=== PATIENT | female | born 1990 | race Caucasian/White ===

== ENCOUNTER 2016-11-25 13:29 | Emergency (ER) | payer OTHER ==
[2016-11-25 13:49] VITALS: BP 112/82
--- NOTE | 2016-11-25 14:53 | UC ---
Abdominal Pain Female HPI - HPI Summary HPI Summary: Noticed R-sided low pelvic discomfort, "swelling" 2 nights ago. Also feeling bloated and a little nauseated, like with a period, but pt doesn't get periods with mirena. She does have occasional spotting but doesn't track frequency and isn't sure if it happens monthly or not. Just started with vaginal spotting today, feels it has been a long time (more than a month). Denies fever, recent new sexual partners, urinary sx, or severe pain. Had normal BM this morning and reports BMs 1-2x/day usually. - History of Current Complaint Chief Complaint: UCGeneralIllness Stated Complaint: PELVIC SWELLING/ABD PAIN/CRAMPS Time Seen by Provider: 11/25/16 14:02 Hx Obtained From: Patient Hx Last Menstrual Period: unknown ?: No Onset/Duration: Gradual Onset, Lasting Days Timing: Constant Severity Initially: Mild Severity Currently: Mild Location: Discrete At: RLQ, Suprapubic Radiates: No Character: Cramping Aggravating Factor(s): Nothing Alleviating Factor(s): Nothing Associated Signs and Symptoms: Positive: Nausea. Negative: Fever, Cough, Back Pain, Constipation, Blood in Stool, Urinary Symptoms, Vaginal Discharge, Vomiting, Diarrhea Allergies/Adverse Reactions: Allergies Allergy/AdvReac Type Severity Reaction Status Date / Time No Known Allergies Allergy Verified 11/25/16 13:40 PMH/Surg Hx/FS Hx/Imm Hx Previously Healthy: Yes - Surgical History Surgical History: Yes Surgery Procedure, Year, and Place: . Biopsy, bilat breasts - Family History Known Family History: Positive: None Negative: Cardiac Disease, Hypertension, Diabetes - Social History Lives: With Family Alcohol Use: None Substance Use Type: None Smoking Status (MU): Never Smoked Tobacco - Immunization History Most Recent Influenza Vaccination: not needed Most Recent Tetanus Shot: december 2013 Most Recent Pneumonia Vaccination: not needed Review of Systems Constitutional: Negative Skin: Negative Eyes: Negative ENT: Negative Respiratory: Negative Cardiovascular: Negative Gastrointestinal: Abdominal Pain Genitourinary: Negative Motor: Negative Neurovascular: Negative Musculoskeletal: Negative Neurological: Negative Psychological: Negative All Other Systems Reviewed And Are Negative: Yes Physical Exam Triage Information Reviewed: Yes Appearance: Well-Appearing, No Pain Distress, Well-Nourished Vital Signs: Initial Vital Signs Temp 98.4 F 11/25/16 13:41 Pulse 97 11/25/16 13:41 Resp 18 11/25/16 13:41 BP 112/82 11/25/16 13:41 Pulse Ox 100 11/25/16 13:41 Vital Signs Reviewed: Yes Eye Exam: Normal Eyes: Positive: Conjunctiva Clear ENT Exam: Normal ENT: Positive: Normal ENT inspection, Hearing grossly normal, Pharynx normal, TMs normal Dental Exam: Normal Neck exam: Normal Neck: Positive: Supple, Nontender, No Lymphadenopathy Respiratory Exam: Normal Respiratory: Positive: Chest non-tender, Lungs clear, Normal breath sounds, No respiratory distress, No accessory muscle use Cardiovascular Exam: Normal Cardiovascular: Positive: RRR, No Murmur Abdomen Description: Positive: Nontender, No Organomegaly, Soft, Other: - able to deeply palpate uncomfortable area, no mass or pelvic LAD noted. Pt comfortable the whole time.. Negative: CVA Tenderness (R), CVA Tenderness (L), Distended, Guarding Musculoskeletal Exam: Normal Neurological Exam: Normal Neurological: Positive: Alert Psychological Exam: Normal Skin Exam: Normal Abd Pain Female Course/Dx - Differential Dx/Diagnosis Provider Diagnoses: Abdominal bloating due to reproductive hormones Discharge - Discharge Plan Condition: Stable Disposition: HOME Patient Education Materials: Gas and Bloating (ED) Referrals: No Primary Care Phys,NOPCP [Primary Care Provider] - Additional Instructions: As we discussed, I do not see any concerning signs for emergencies such as ectopic or ovarian torsion. Your collection of symptoms is very consistent with hormonal changes around menstruation, and since the mirena does not always suppress hormonal cycling, I think your cramping and bloating are from your reproductive hormones. You should start feeling better in two or three days, and all pain should be manageable with ibuprofen or acetaminophen. If you develop fever, severe pain, brisk vaginal bleeding, or if you ever have a positive test with an IUD, please go to the emergency department. I am sending blood work to make sure you are not and lab work to check for gynecological infection.
== END 2016-11-25 14:46 | disposition home or self-care (01) ==
LOC: UCEAST 13:29
DX: R14.0 Abdominal distension (gaseous) (principal); Z97.5 Presence of (intrauterine) contraceptive device
CPT/HCPCS: 36415; 81003; 84702; 87491; 87591; 99211; G0463

== ENCOUNTER 2018-04-16 17:11 | Emergency (ER) | payer OTHER ==
[2018-04-16 17:51] VITALS: BP 107/72
--- NOTE | 2018-04-16 19:29 | UC ---
Complaint Female HPI - HPI Summary HPI Summary: 27 y/o female presents to the urgent care c/o a white vaginal discharge that itches a lot. Pt reports she was Tx for Micheline 3 weeks ago at [facility] w / 1 tab PO of Fluconazole. However symptoms improved for 3 days and then vaginal discharged returned. Pt states genital irritation due to itchiness. Pt denies fever, lower backpain,urinary symptoms, flank pain, Hx of STD's, abdominal pain, N/V/D. LMP: on Mirena w/ irregular menstrual cycles. - History Of Current Complaint Chief Complaint: UCGU Stated Complaint: PERSONAL Time Seen by Provider: 04/16/18 19:06 Hx Obtained From: Patient Hx Last Menstrual Period: 04/03/2018 ?: No Onset/Duration: Gradual Onset, Lasting Weeks - 3 weeks, Still Present, Worse Since - last week Timing: Constant Severity Initially: Mild Severity Currently: Moderate Pain Intensity: 5 - genital irritation Pain Scale Used: 0-10 Numeric Character: Burning Aggravating Factor(s): Urination Associated Signs And Symptoms: Positive: Vaginal Discharge, Genital Swelling. Negative: Fever, Back Pain - Risk Factors Ectopic Risk Factor: Negative - Allergies/Home Medications Allergies/Adverse Reactions: Allergies Allergy/AdvReac Type Severity Reaction Status Date / Time No Known Allergies Allergy Verified 04/16/18 17:51 PMH/Surg Hx/FS Hx/Imm Hx Previously Healthy: Yes - Pt denies PMHX - Surgical History Surgical History: Yes Surgery Procedure, Year, and Place: . Biopsy, bilat breasts - Family History Known Family History: Positive: Diabetes Negative: Cardiac Disease, Hypertension - Social History Occupation: Employed Full-time Lives: With Family Alcohol Use: Rare Substance Use Type: None Smoking Status (MU): Never Smoked Tobacco - Immunization History Most Recent Influenza Vaccination: not needed Most Recent Tetanus Shot: december 2013 Most Recent Pneumonia Vaccination: not needed Review of Systems Constitutional: Negative Skin: Rash - genital irritation Eyes: Negative ENT: Negative Respiratory: Negative Cardiovascular: Negative Gastrointestinal: Negative Genitourinary: Vaginal/Penile Itching, Vaginal/Penile Discharge Motor: Negative Neurovascular: Negative Musculoskeletal: Negative Neurological: Negative Psychological: Negative Is Patient Immunocompromised?: No All Other Systems Reviewed And Are Negative: Yes Physical Exam - Summary Physical Exam Summary: Vital signs: reviewed General: well developed, well nourished female sitting in the examining table w /o any acute distress. Head: Normocephalic, no lesions. Eyes: PERRLA, EOM's full, conjunctiva clear, fundi grossly normal. Ears: EAC's clear, TM's normal. Nose: Mucosa normal, no obstruction. Throat: Clear, no exudates, no lesions. Neck: Supple, no masses, no thyromegaly, no bruits. Chest: Lungs clear, no rales, no rhonchi, no wheezes. Heart: RR, no murmurs, no rubs, no gallops. Abdomen: Soft, no tenderness, no masses, BS normal. Pelvic: I was assisted by Nurse Aster. External genitalia within normal limits. There is no lesions there is no masses noted. Speculum exam: The vaginal entrace w/ erythema, vaginal kessler are within normal limits w/ profuse white cottage cheese mix w/ blood vaginal discharge, no the lesions or rashes. The cervix is closed witmild erythema, no lesions or masses, string from Mirena IUD in placed coming out of os. There is no CMT's, and no adnexal masses. Sample sent to Lab for G/C and Affirm panel. Rectal: No lesions, no hemorrhoids, Back: Normal curvature, no tenderness. Extremities: FROM, no deformities, no edema, no erythema. Neuro: Physiological, no localizing findings. Skin: Normal, no rashes, no lesions noted. Triage Information Reviewed: Yes Vital Signs: Initial Vital Signs Temp 97.9 F 04/16/18 17:47 Pulse 105 04/16/18 17:47 Resp 16 04/16/18 17:47 BP 107/72 04/16/18 17:47 Pulse Ox 100 04/16/18 17:47 Complaint Female Dx - Course Course Of Treatment: 27 y/o female presents to the urgent care c/o a white vaginal discharge that itches a lot. Pt reports she was Tx for Micheline 3 weeks ago at [facility] w/ 1 tab PO of Fluconazole. However symptoms improved for 3 days and then vaginal discharged returned. Pt states genital irritation due to itchiness. Pt denies fever, lower backpain,urinary symptoms, flank pain, Hx of STD's, abdominal pain, N/V/D. LMP: on Mirena w/ irregular menstrual cycles. Hx obtained. Pt w/ Vulvovaginal Candidiasis on examination. Pt Rx Clotrimazole vaginal applicator and Flucomazole PO due to the secverity of symptoms. Vaginal Sample sent to Lab for Affirm panel and GC/Chlamydia to r/ o any abnormality. pt will be notified of result. UA: trace of blood. test:negative. Advised to f/u w/ [employer] for further managment if not improvment of symptoms. Pt understood and agreed with plan of care. - Differential Dx/Diagnosis Differential Diagnosis/HQI/PQRI: Cervicitis, Pelvic Inflammatory Disease, , Renal Colic, Ureteral Stone, Urinary Tract Infection, Other - vaginitis Provider Diagnoses: 1- Vulbovaginal candidiasis. 2-STD's screening Discharge - Sign-Out/Discharge Documenting (check all that apply): Patient Departure - D/c home All imaging exams completed and their final reports reviewed: No Studies - Discharge Plan Condition: Stable Disposition: HOME Prescriptions: Clotrimazole 1% VAGINAL CREAM* [Gyne-Lotrimin 1% VAGINAL CREAM*] 1 applic VAGINAL DAILY #1 box Fluconazole 150 MG (NF) [Diflucan 150 mg (NF)] 150 mg PO ONCE #1 tab Patient Education Materials: Yeast Infection (ED), Vaginitis (ED) Referrals: [facility] [Outside] Additional Instructions: 1-Please apply Clotrimazole topical cream as directed. 2- Please take medications as directed. 3- Specimen were sent to lab, if anything abnormal you will receive a call from us for further treatment. 4-If not improvement of symptoms please return to the urgent care or f/u with your [employer] for further treatment - Billing Disposition and Condition Condition: STABLE Disposition: Home - Attestation Statements Provider Attestation: Per institutional requirements, I have reviewed the chart, however, I was not consulted specifically or made aware of this patient by the midlevel provider. I did not personally evaluate, interact with , or disposition this patient.
== END 2018-04-16 20:15 | disposition home or self-care (01) ==
LOC: UCEAST 17:11
DX: B37.3 Candidiasis of vulva and vagina (principal); Z11.3 Encounter for screening for infections with a predominantly sexual mode of transmission
CPT/HCPCS: 81003; 84702; 87480; 87491; 87510; 87591; 87661; 99212; G0463